=== PATIENT | male | born 1955 | race Caucasian/White ===

== ENCOUNTER 2019-04-22 04:57 | Emergency (ER) | payer OTHER ==
[~2019-04-22] VITALS: Ht 167.6 cm; Wt 150.3 kg
[2019-04-22 04:57] VITALS: BP 136/101
--- NOTE | 2019-04-22 04:57 | NUR ---
PT TAKEN TO BED 11
--- NOTE | 2019-04-22 05:03 | NUR ---
Dr. Reed evaluating patient at bedside.
--- NOTE | 2019-04-22 05:05 | NUR ---
PT CAME IN WITH C/O DIARRHEA X 2 WEEKS. PT STATED HIS DIARRHEA WAS WATERY. DENIES N/V AND ABDOMINAL PAIN. PT IS A/O TO PERSON PLACE AND TIME. ER MD MADE AWARE OF STATUS. SAFETY MEASURES IN PLACE, BED RAILS UP X 2.
[2019-04-22] MEDS ORDERED: NACL 0.9% 1,000 ML IV ONE (05:09)
[2019-04-22] MEDS ORDERED: ATOR10TA PO (05:10)
[2019-04-22] MEDS ORDERED: KETOROLAC 30 MG/ML VIAL IVP ONE (05:10)
[2019-04-22] MEDS ORDERED: METF500T PO (05:10)
[2019-04-22] MEDS ORDERED: LISI30TA6 PO (05:11)
[2019-04-22] MEDS ORDERED: METO50TE2 PO (05:12)
[2019-04-22] MEDS ORDERED: DIT5 PO (05:13)
[2019-04-22] MEDS ORDERED: OMEG92TA PO (05:13)
[2019-04-22 05:26] LABS: BASOPHILS # (AUTO) 0.1 K/uL (0.00-0.22); BASOPHILS % (AUTO) 1.4 % (0.0-2.0); EOSINOPHILS # (AUTO) 0.2 K/uL (0-0.4); EOSINOPHILS % (AUTO) 2.3 % (0.0-4.0); HEMATOCRIT 43.3 % (36-52); HEMOGLOBIN 15.1 g/dL (12.0-18.0); LYMPHOCYTES # (AUTO) 1.9 K/uL (2.0-11.5); LYMPHOCYTES % (AUTO) 26.5 % (20.5-51.1); MEAN CORPUSCULAR HEMOGLOBIN 32 pg (27-31); MEAN CORPUSCULAR HGB CONC 35 g/dL (33-37); MEAN CORPUSCULAR VOLUME 91.7 fL (80-94); MONOCYTES # (AUTO) 0.7 K/uL (0.8-1.0); MONOCYTES % (AUTO) 9.4 % (1.7-9.3); NEUTROPHILS # (AUTO) 4.3 K/uL (1.8-7.7); NEUTROPHILS % (AUTO) 60.4 % (42.2-75.2); PLATELET COUNT (AUTO) 155 K/uL (140-450); RED BLOOD CELL COUNT(AUTO) 4.72 MIL/uL (4.20-6.10); RED CELL DISTRIBUTION WIDTH 14.3 % (11.6-13.7); WHITE BLOOD COUNT (AUTO) 7.1 K/uL (4.8-10.8)
--- NOTE | 2019-04-22 05:36 | NUR ---
PT GOING TO CT
[2019-04-22 05:41] LABS: ALBUMIN 3.7 g/dL (3.4-5.0); ANION GAP 11.6 (8-16); CARBON DIOXIDE 30.3 mmol/L (21-32); CREATININE 1.2 mg/dL (0.7-1.3); POTASSIUM 3.9 mmol/L (3.5-5.1); TOTAL BILIRUBIN 0.5 mg/dL (0.0-1.0)
--- NOTE | 2019-04-22 05:56 | NUR ---
PT RETURN FROM CT
[2019-04-22] MEDS ORDERED: DICYCLOMINE 20 MG/2 ML VIAL IM ONE (06:50)
--- NOTE | 2019-04-22 07:17 | NUR ---
GAVE REPORT TO MICHELLE BHATTI, S
[2019-04-22 07:43] VITALS: BP 131/71
--- NOTE | 2019-04-22 07:44 | NUR ---
Patient discharged with v/s stable. Written and verbal after care instructions given and explained. Patient alert, oriented and verbalized understanding of instructions. Ambulatory with steady gait. All questions addressed prior to discharge. Pt requsted to keep the ID band. Patient advised to follow up with PMD. Rx of Miralax powder and Gillett given. Patient educated on indication of medication including possible reaction and side effects. Opportunity to ask questions provided and answered.
== END 2019-04-22 07:44 | disposition home or self-care (01) ==
LOC: MED 04:57
DX: R19.7 Diarrhea, unspecified (principal); Z79.899 Other long term (current) drug therapy
CPT/HCPCS: 36415; 74176; 80053; 83605; 83690; 85025; 87040; 96361; 96372; 96374; 99284; J0500; J1885; J7030

== ENCOUNTER 2023-07-02 03:10 | Emergency (ER) | payer OTHER ==
[~2023-07-02] VITALS: Ht 167.6 cm; Wt 113.4 kg
[~2023-07-02 03:10] MED LIST: ATOR10TA PO; LISI30TA6 PO; METF-346 PO; METO50TE2 PO; OMEG92TA PO; OXYB5TAB44 PO
--- NOTE | 2023-07-02 03:10 | NUR ---
PT NUBIA NEWBERRY. TAKEN TO BED 12
--- NOTE | 2023-07-02 03:10 | NUR ---
OLMAND examining patient.
[2023-07-02] MEDS ORDERED: traMADol 50 MG TAB PO ONE (03:20)
--- NOTE | 2023-07-02 03:30 | NUR ---
Patient is a 67/M [place] [facility] [place] pain, burning, 10/10, radiating to bilateral lower extremities several minutes ago. Patient also complains of left testicular pain. Patient denies headache, chest pain, SOB, nausea/vomiting, abdominal pain. PMHx: HTN, DM NKA
[2023-07-02 03:35] VITALS: BP 145/52; PULSE 85; RESP 20; TEMP 98; O2SAT 98
[2023-07-02] MEDS ORDERED: CLOT1CRE82 TP (03:41)
[2023-07-02] MEDS ORDERED: FURO-572 PO (03:41)
[2023-07-02 04:20] VITALS: BP 140/52; PULSE 82; RESP 18; TEMP 97.7; O2SAT 97
--- NOTE | 2023-07-02 04:20 | NUR ---
Patient discharged with v/s stable. Written and verbal after care instructions given and explained. Patient alert, oriented and verbalized understanding of instructions. Ambulatory with steady gait. All questions addressed prior to discharge. ID band removed. Patient advised to follow up with PMD. Rx of CLOTRIMAZOLE AND LASIX given. Patient educated on indication of medication including possible reaction and side effects. Opportunity to ask questions provided and answered.
== END 2023-07-02 04:20 | disposition home or self-care (01) ==
LOC: MED 03:10
DX: B35.6 Tinea cruris (principal); R60.9 Edema, unspecified; I87.2 Venous insufficiency (chronic) (peripheral); I13.10 Hypertensive heart and chronic kidney disease without heart failure, with stage 1 through stage 4 chronic kidney disease, or unspecified chronic kidney disease; N18.9 Chronic kidney disease, unspecified; Z79.899 Other long term (current) drug therapy
CPT/HCPCS: 99283

== ENCOUNTER 2024-06-26 16:26 | Inpatient (IN) | payer OTHER, MEDICAID ==
[~2024-06-26] VITALS: Ht 170.2 cm; Wt 157.9 kg
[~2024-06-26 16:26] MED LIST changes: +CLOT1CRE82 TP; +FURO-572 PO
[2024-06-26 16:32] VITALS: BP 166/82; PULSE 82; RESP 18; TEMP 98; O2SAT 95
[2024-06-26 16:59] LABS: BASOPHILS # (AUTO) 0.1 K/uL (0.00-0.22); EOSINOPHILS # (AUTO) 0.1 K/uL (0-0.4); EOSINOPHILS % (AUTO) 1.6 % (0.0-4.0); HEMATOCRIT 41.4 % (36-52); HEMOGLOBIN 14.1 g/dL (12.0-18.0); LYMPHOCYTES # (AUTO) 1.3 K/uL (2.0-11.5); LYMPHOCYTES % (AUTO) 16.9 % (20.5-51.1); MEAN CORPUSCULAR HEMOGLOBIN 31 pg (27-31); MEAN CORPUSCULAR HGB CONC 34 g/dL (33-37); MEAN CORPUSCULAR VOLUME 89.9 fL (80-94); MONOCYTES # (AUTO) 0.6 K/uL (0.8-1.0); MONOCYTES % (AUTO) 7.4 % (1.7-9.3); NEUTROPHILS # (AUTO) 5.6 K/uL (1.8-7.7); NEUTROPHILS % (AUTO) 73.1 % (42.2-75.2); PLATELET COUNT (AUTO) 130 K/uL (140-450); RED CELL DISTRIBUTION WIDTH 14.2 % (11.6-13.7); WHITE BLOOD COUNT (AUTO) 7.7 K/uL (4.8-10.8)
[2024-06-26 17:24] LABS: ANION GAP 14.3 (8-16); CALCIUM 8.9 mg/dL (8.5-10.1); CARBON DIOXIDE 24.6 mmol/L (21-32); CREATININE 0.9 mg/dL (0.6-1.3); POTASSIUM 3.9 mmol/L (3.5-5.1)
[2024-06-26] MEDS: LORazepam 2 MG/ML VIAL IM STA ×2 (17:32→18:38)
[2024-06-26] MEDS: HALOPERIDOL IM 5 MG/ML VIAL IM ONE (17:33)
[2024-06-26] MEDS: diphenhydrAMINE 50 MG/ML VIAL IM ONE ×2 (17:33→18:37)
[2024-06-26 17:44] LABS: ALANINE AMINOTRANSFERASE 35 U/L (12-78); ALBUMIN 3.4 g/dL (3.4-5.0); ALCOHOL, BLOOD < 3 mg/dL (<10); ALKALINE PHOSPHATASE 123 U/L (50-136); ASPARTATE AMINOTRANSFERASE 20 U/L (15-37); BILIRUBIN,DIRECT 0.1 mg/dL (0.0-0.3); TOTAL BILIRUBIN 0.4 mg/dL (0.0-1.0); TOTAL PROTEIN, SERUM 7.6 g/dL (6.4-8.2)
[2024-06-26 17:47] LABS: ACETAMINOPHEN < 0.5 ug/ml (10-30); SALICYLATE < 2.8 mg/dL (2.8-20.0)
[2024-06-26 19:14] VITALS: PULSE 91; O2SAT 97
[2024-06-26] MEDS ORDERED: ACETAMINOPHEN 325 MG TAB PO PRN (19:45)
[2024-06-26] MEDS ORDERED: ONDANSETRON 4 MG/2 ML VIAL IVP PRN (19:45)
[2024-06-26 19:50] VITALS: O2SAT 96
[2024-06-26 20:30] VITALS: PULSE 86; RESP 20; O2SAT 96
[2024-06-26] MEDS: LORazepam 2 MG/ML VIAL IVP PRN (23:41)
[2024-06-27] VITALS (10 sets, daily range): BP systolic 133–149; BP diastolic 70–94; PULSE 81–100; RESP 20–24; TEMP 97.1–97.9; O2SAT 93–99
[2024-06-27 08:21] LABS: BASOPHILS # (AUTO) 0.1 K/uL (0.00-0.22); BASOPHILS % (AUTO) 0.8 % (0.0-2.0); EOSINOPHILS # (AUTO) 0.1 K/uL (0-0.4); EOSINOPHILS % (AUTO) 1.9 % (0.0-4.0); HEMATOCRIT 40.6 % (36-52); HEMOGLOBIN 13.7 g/dL (12.0-18.0); LYMPHOCYTES # (AUTO) 1.3 K/uL (2.0-11.5); LYMPHOCYTES % (AUTO) 17.2 % (20.5-51.1); MEAN CORPUSCULAR HEMOGLOBIN 31 pg (27-31); MEAN CORPUSCULAR HGB CONC 34 g/dL (33-37); MEAN CORPUSCULAR VOLUME 91.5 fL (80-94); MONOCYTES # (AUTO) 0.6 K/uL (0.8-1.0); MONOCYTES % (AUTO) 8.5 % (1.7-9.3); NEUTROPHILS # (AUTO) 5.4 K/uL (1.8-7.7); NEUTROPHILS % (AUTO) 71.6 % (42.2-75.2); PLATELET COUNT (AUTO) 135 K/uL (140-450); RED BLOOD CELL COUNT(AUTO) 4.44 MIL/uL (4.20-6.10); RED CELL DISTRIBUTION WIDTH 14.3 % (11.6-13.7); WHITE BLOOD COUNT (AUTO) 7.6 K/uL (4.8-10.8)
[2024-06-27 10:01] LABS: ANION GAP 15.1 (8-16); CALCIUM 8.2 mg/dL (8.5-10.1); CARBON DIOXIDE 22.2 mmol/L (21-32); CREATININE 0.9 mg/dL (0.6-1.3); POTASSIUM 4.3 mmol/L (3.5-5.1)
[2024-06-27] MEDS ORDERED: POTASSIUM CHLORIDE 10 MEQ TABER PO PRN (10:40)
[2024-06-27] MEDS ORDERED: ONDANSETRON 4 MG/2 ML VIAL IM/IVP PRN (10:40)
[2024-06-27] MEDS ORDERED: DOCUSATE SODIUM 100 MG GELCAP PO PRN (10:40)
[2024-06-27] MEDS ORDERED: KETOROLAC 30 MG/ML VIAL IVP PRN (10:40)
[2024-06-27] MEDS: MAGNESIUM OXIDE 400 MG TAB PO ONE (10:40)
[2024-06-27] MEDS ORDERED: guaiFENesin DM 200/20 MG-10 ML 10 ML UDC PO PRN (10:40)
[2024-06-27] MEDS ORDERED: oxyCODONE/APAP 5/325 MG 1 TAB TAB PO PRN (10:40)
[2024-06-27] MEDS ORDERED: ZOLPIDEM 5 MG TAB PO PRN (10:40)
[2024-06-27] MEDS ORDERED: NITROGLYCERIN 0.4 MG TAB SL PRN (10:45)
[2024-06-27] MEDS ORDERED: DEXTROSE 50% 50 ML SYR IVP PRN (10:45)
[2024-06-27] MEDS: BLOOD GLUCOSE MONITORING 1 DEV DEV FS SCH (11:30)
[2024-06-27] MEDS: INSULIN LISPRO SLIDING SCALE 100 UNITS/ML VIAL SUBQ PRN (12:55)
[2024-06-27] MEDS: ATORVASTATIN 20 MG TAB PO SCH (17:25)
[2024-06-27] MEDS: MAGNESIUM OXIDE 400 MG TAB PO SCH (17:25)
[2024-06-27] MEDS: METOPROLOL 25 MG TAB PO SCH (20:50)
[2024-06-27] MEDS: INSULIN LANTUS 100 UNITS/ML 10 ML VIAL SUBQ SCH (20:53)
[2024-06-28] VITALS (7 sets, daily range): BP systolic 131–134; BP diastolic 76–82; PULSE 70–92; RESP 20; TEMP 97.4–98.2; O2SAT 92–98
[2024-06-28 01:06] LABS: AMPHETAMINE, URINE NEGATIVE ng/ml (NEG <=1000); BARBITURATE, URINE NEGATIVE ng/ml (NEG <=200); BENZODIAZEPINE, URINE POSITIVE ng/mL (NEG <=200); CANNABINOID, URINE NEGATIVE ng/mL (NEG <=50); COCAINE, URINE NEGATIVE ng/mL (NEG <=300); OPIATE, URINE NEGATIVE ng/mL (NEG <=2000); PHENCYCLIDINE SCREEN,URINE NEGATIVE ng/mL (NEG <=25)
[2024-06-28 07:33] LABS: ANION GAP 10.2 (8-16); CALCIUM 8.2 mg/dL (8.5-10.1); CARBON DIOXIDE 27.2 mmol/L (21-32); CREATININE 0.8 mg/dL (0.6-1.3); POTASSIUM 4.4 mmol/L (3.5-5.1)
[2024-06-28 08:55] LABS: MAGNESIUM 1.6 mg/dL (1.8-2.4); PHOSPHORUS 3.1 mg/dL (2.5-4.9)
[2024-06-28] MEDS: ECOTRIN 81 MG TABEC PO SCH (08:56)
[2024-06-28] MEDS: lisinopriL 5 MG TAB PO SCH (08:57)
[2024-06-28] MEDS: PANTOPRAZOLE 40 MG TABEC PO SCH (08:57)
[2024-06-28] MEDS ORDERED: MAG SULF 2000 MG/WATER PREMIX 50 ML IV SCH (09:24)
[2024-06-28] MEDS ORDERED: INSULIN LANTUS 100 UNITS/ML 10 ML VIAL SUBQ SCH (21:00)
== END 2024-06-28 10:17 | disposition left against medical advice (07) | DRG 189 ==
LOC: MED 16:26 → MTU 19:42
PROVIDERS: ADMIT Student in an Organized Health Care Education/Training Program; ATTEND Student in an Organized Health Care Education/Training Program
PROC: 5A09357 Assistance with Respiratory Ventilation, Less than 24 Consecutive Hours, Continuous Positive Airway Pressure (ICD-10-PCS; principal; 2024-06-26)
PROC: 5A09357 Assistance with Respiratory Ventilation, Less than 24 Consecutive Hours, Continuous Positive Airway Pressure (ICD-10-PCS; 2024-06-27)
DX: J96.01 Acute respiratory failure with hypoxia (principal); I21.A1 Myocardial infarction type 2; E87.1 Hypo-osmolality and hyponatremia; I11.0 Hypertensive heart disease with heart failure; G47.33 Obstructive sleep apnea (adult) (pediatric); Z53.29 Procedure and treatment not carried out because of patient's decision for other reasons; E11.9 Type 2 diabetes mellitus without complications; I50.9 Heart failure, unspecified; E83.42 Hypomagnesemia; Z79.899 Other long term (current) drug therapy; Z91.199 Patient's noncompliance with other medical treatment and regimen due to unspecified reason; Z79.4 Long term (current) use of insulin
CPT/HCPCS: 36415; 71045; 80048; 80076; 80305; 82948; 83735; 83880; 84100; 84484; 85025; 87081; 93005; 94660; 96372; 99291; G0480; G0482; J1200; J1630; J1644; J1815; J2060; J3475; Q0092

== ENCOUNTER 2024-06-28 11:32 | Emergency (ER) | payer OTHER, MEDICAID ==
[~2024-06-28] VITALS: Ht 167.6 cm; Wt 158.8 kg
[2024-06-28 11:40] VITALS: BP 169/84; PULSE 77; RESP 20; TEMP 98.4; O2SAT 97
[2024-06-28] MEDS: LORazepam 2 MG/ML VIAL IM ONE (13:19)
[2024-06-28] MEDS: HALOPERIDOL IM 5 MG/ML VIAL IM ONE (13:19)
[2024-06-28] MEDS: diphenhydrAMINE 50 MG/ML VIAL IM ONE (13:19)
[2024-06-28 19:50] VITALS: O2SAT 97
[2024-06-28 21:54] VITALS: O2SAT 97
[2024-06-29] VITALS (7 sets, daily range): TEMP 97.3; O2SAT 96–97
[2024-06-29] MEDS ORDERED: LORazepam 2 MG/ML VIAL ONE (17:00)
[2024-06-29] MEDS ORDERED: HALOPERIDOL IM 5 MG/ML VIAL ONE (17:00)
[2024-06-29] MEDS: LORazepam 2 MG/ML VIAL IM ONE ×2 (17:15→23:45)
[2024-06-29] MEDS: HALOPERIDOL IM 5 MG/ML VIAL IM ONE ×2 (17:15→23:45)
[2024-06-29] MEDS: diphenhydrAMINE 50 MG/ML VIAL IM ONE (23:45)
[2024-06-30 01:49] VITALS: O2SAT 96
[2024-06-30 05:39] VITALS: BP 177/84; PULSE 83; RESP 18; O2SAT 96
== END 2024-06-30 11:10 | disposition left against medical advice (07) ==
LOC: MED 11:32
DX: Z73.6 Limitation of activities due to disability (principal); E11.9 Type 2 diabetes mellitus without complications; I11.0 Hypertensive heart disease with heart failure; I50.9 Heart failure, unspecified; Z79.84 Long term (current) use of oral hypoglycemic drugs; Z79.899 Other long term (current) drug therapy
CPT/HCPCS: 82948; 96372; 99285; J1200; J1630; J2060